=== PATIENT | female | born 1970 | race Caucasian/White ===

== ENCOUNTER 2016-12-15 13:18 | Emergency (ER) | payer OTHER ==
[2016-12-15 13:42] VITALS: BP 155/94; PULSE 100; BMI 41.5
--- NOTE | 2016-12-15 14:14 | PDOC ---
History of Present Illness - General Chief Complaint: Scabies Stated Complaint: RASH Time Seen by Provider: 12/15/16 13:53 History Source: Patient Exam Limitations: No Limitations - History of Present Illness Initial Comments: 12/15/16 14:08 46 yr female with one week itchy rash spreading. started behind ears and scalp now to waistline, under breasts arms . no fever or chills, pt has NIDDM. [facility] fr[facility] and was given permetherin cream which pt applied for 14hrs then rinsed. Pt continues to itch. Past History - Past Medical History Allergies/Adverse Reactions: Allergies Allergy/AdvReac Type Severity Reaction Status Date / Time prochlorperazine edisylate Allergy Severe MUSCLE Verified 12/15/16 13:43 [From Compazine] SPASMS prochlorperazine maleate Allergy Severe MUSCLE Verified 12/15/16 13:43 [From Compazine] SPASMS Home Medications: Ambulatory Orders Glipizide 5 mg PO TIDAC 10/10/14 Sitagliptin Phosphate [Januvia] 100 mg PO DAILY tablet 11/09/15 Cholecalciferol (Vitamin D3) [Vitamin D3] 4,000 unit PO DAILY 12/29/15 Gabapentin 300 mg PO TID 12/29/15 Sitagliptin Phosphate [Januvia] 100 mg PO DAILY 12/29/15 Hydroxyzine Pamoate [Vistaril -] 25 mg PO TID PRN #42 capsule 12/15/16 Permethrin 5% Topical Cream [Elimite -] 1 applic TP ONCE #2 tube 12/15/16 Anemia: No Asthma: No Cancer: No Cardiac Disorders: No CVA: No COPD: No CHF: No Dementia: No Diabetes: Yes GI Disorders: No Disorders: No HTN: Yes Hypercholesterolemia: No Liver Disease: No Suicide Attempt (Hx): No Seizures: No Thyroid Disease: No - Surgical History Abdominal Surgery: No Appendectomy: No Cardiac Surgery: No Cholecystectomy: No Lung Surgery: No Neurologic Surgery: No Orthopedic Surgery: No - Immunization History Immunization Up to Date: Yes - Psycho/Social/Smoking Cessation Hx Anxiety: No Suicidal Ideation: No Smoking History: Never smoked Have you smoked in the past 12 months: No Number of Cigarettes Smoked Daily: 0 Cigars Per Day: 0 Information on smoking cessation initiated: No Hx Alcohol Use: No Drug/Substance Use Hx: No Substance Use Type: None Hx Substance Use Treatment: No *Physical Exam - Vital Signs Last Vital Signs Temp Pulse Resp BP Pulse Ox 100 H 18 155/94 98 12/15/16 13:39 12/15/16 13:39 12/15/16 13:39 12/15/16 13:39 - Physical Exam General Appearance: Yes: Nourished, Appropriately Dressed HEENT: positive: EOMI, ETIENNE Neck: negative: Tender Respiratory/Chest: positive: Lungs Clear, Normal Breath Sounds. negative: Chest Tender Cardiovascular: positive: Regular Rhythm, Regular Rate Musculoskeletal: positive: Normal Inspection Extremity: positive: Normal Capillary Refill, Normal Inspection, Normal Range of Motion Integumentary: positive: Rash (generalised rash red tracking small maculopapular scabed multiple stages tracking up arm, waistline, inner thighs axilla) Neurologic: positive: Fully Oriented, Alert, Normal Mood/Affect, Normal Response , Motor Strength 5/5 Medical Decision Making - Medical Decision Making 12/15/16 14:24 cc: itchy rash for 1-2 weeks will prescribe vistaril for itching will refer to derm pt to repeat the cream on *DC/Admit/Observation/Transfer Diagnosis at time of Disposition: Scabies - Discharge Dispostion Disposition: HOME Condition at time of disposition: Good - Prescriptions Prescriptions: Permethrin 5% Topical Cream [Elimite -] 1 applic TP ONCE #2 tube Hydroxyzine Pamoate [Vistaril -] 25 mg PO TID PRN #42 capsule PRN Reason: For Itching - Referrals Referrals: Osvaldo Daugherty MD [Primary Care Provider] - Beverley Jones MD [Staff Physician] - - Patient Instructions Additional Instructions: follow with the disk sander cool water to bathe avoid heat use the prescribed cream as directed on 12/20/16Friday take vistaril for itching as directed
== END 2016-12-15 14:18 | disposition home or self-care (01) ==
LOC: JERFT 13:18
DX: B86 Scabies (principal); I10 Essential (primary) hypertension; E11.9 Type 2 diabetes mellitus without complications; Z79.84 Long term (current) use of oral hypoglycemic drugs
CPT/HCPCS: 99281-25